=== PATIENT | male | born 1965 | race Caucasian/White ===

== ENCOUNTER 2017-05-31 11:26 | Emergency (ER) | payer OTHER ==
[~2017-05-31] VITALS: Ht 170.2 cm; Wt 99.8 kg
[2017-05-31 12:05] LABS: HEMATOCRIT 40.1 % (38.0-50.0); HEMOGLOBIN 13.9 G/DL (12.5-16.6); MCHC 34.7 G/DL (30.0-36.0); MCV 92.2 FL (86-99); PLATELET COUNT 209 K/uL (156-360); RBC DIS.WIDTH-CV 12.3 % (11.8-14.6); RBC DIS.WIDTH-SD 42.1 % (39-53); RED BLOOD COUNT 4.35 M/uL (4.00-5.50); WHITE BLOOD COUNT 7.4 K/uL (4.1-10.2)
[2017-05-31 12:18] LABS: ALBUMIN 4.4 g/dL (3.2-4.8); CHLORIDE 106 mEq/L (99-109); POTASSIUM 4.9 mEq/L (3.7-5.4); SODIUM 139 mEq/L (136-147)
[2017-05-31 12:20] LABS: GLUCOSE 157 mg/dL (70-99); TOTAL PROTEIN 8.4 g/dL (6.4-8.3)
[2017-05-31 12:22] LABS: TOTAL BILIRUBIN 0.5 mg/dL (0.0-1.0)
[2017-05-31 12:24] LABS: ALKALINE PHOSPHATASE 73 IU/L (3-129); CREATININE 1.6 mg/dL (0.6-1.3)
[2017-05-31 12:25] LABS: GFR ESTIMATE (CALCULATED) 48 mL/min/ (58.99-99999); UREA NITROGEN (BUN) 22 mg/dL (9-23)
[2017-05-31 12:26] LABS: AST (GOT) 51 IU/L (2-34)
[2017-05-31 12:27] LABS: ALT (GPT) 100 IU/L (3-49)
[2017-05-31 12:59] LABS: APPEARANCE SL.HAZY ((CLEAR)); BILIRUBIN NEGATIVE; BLOOD SMALL; COLOR YELLOW ((YELLOW)); GLUCOSE (STRIP) 50; KETONES NEGATIVE; LEUKOCYTES NEGATIVE; NITRITE NEGATIVE; PROTEIN (STRIP) 30; SPECIFIC GRAVITY 1.026 (1.000-1.030); UROBILINOGEN 0.2 MG/DL (0.2-1.0)
[2017-05-31 13:02] LABS: BACTERIA NONE SEEN /HPF; EPITHELIAL CELLS RARE /HPF; MUCUS TRACE /LPF; UCUL ADDED? NO; WHITE BLOOD CELLS 0-5 /HPF (0-5)
[2017-05-31] MEDS ORDERED: FLOMAX0.4 MG PO (15:46)
[2017-05-31] MEDS ORDERED: MOTRIN800 MG PO (15:46)
[2017-05-31] MEDS ORDERED: ZOFRAN ODT4 MG PO (15:58)
[2017-05-31 16:04] VITALS: BP 153/68
== END 2017-05-31 16:04 | disposition home or self-care (01) ==
LOC: EME 11:26
DX: N13.2 Hydronephrosis with renal and ureteral calculous obstruction (principal); K57.30 Diverticulosis of large intestine without perforation or abscess without bleeding; K40.20 Bilateral inguinal hernia, without obstruction or gangrene, not specified as recurrent; Z87.820 Personal history of traumatic brain injury
CPT/HCPCS: 74176; 80053; 81003; 85027; J1885